=== PATIENT | female | born 1940 ===

== ENCOUNTER 2017-10-03 06:48 | Day surgery (SDC) | payer MEDICARE, MEDICAID ==
[2017-10-03 08:03] VITALS: BMI 29.0
[2017-10-03 08:14] VITALS: RESP 18
[2017-10-03 08:46] LABS: PARTIAL THROMBOPLASTIN TIME 31.1 Seconds (25.6-37.1); PROTHROMBIN TIME 11.4 Seconds (9.8-13.1)
[2017-10-03] MEDS ORDERED: Lidocaine Hydrochloride 1% 10 ML ONE (10:28)
[2017-10-03 10:50] VITALS: TEMP 97.4
--- NOTE | 2017-10-03 11:19 | CP.SDSHP ---
Same Day Surgery H & P - History Proposed Procedure: US Guided Thyroid FNA Pre-Op Diagnosis: thyroid nodules - Allergies Allergies: Allergies No Known Allergies Allergy (Verified 10/03/17 08:02) - Physical Exam Vital Signs: Vital Signs 10/03/17 10/03/17 08:13 10:45 Temperature 98.5 F 97.4 F L Pulse Rate 77 78 Respiratory 18 18 Rate Blood Pressure 139/62 156/66 H O2 Sat by Pulse 96 100 Oximetry - Impression Impression: 77 yo female w/ thyroid nodules; plan US guided FNA x3 - Date & Time Date: 10/03/17 Time: 10:45 Short Stay Discharge - Short Stay Discharge Admitting Diagnosis/Reason for Visit: E04.1 Disposition: HOME/ ROUTINE Referrals: Seymour Mccallum [Primary Care Provider] -
--- NOTE | 2017-10-03 11:20 | PCM.SURG1 ---
Surgeon's Initial Post Op Note - Surgeon's Notes Surgeon: Dillon Gardner MD Building Superintendent: None Type of Anesthesia: Local Pre-Operative Diagnosis: thyroid nodules Operative Findings: posterior right upper pole; anterior right mid pole; posterior right lower pole Post-Operative Diagnosis: same Operation Performed: us guided thyroid fna x3 Specimen/Specimens Removed: posterior right upper pole, anterior right mid pole , posterior right lower pole FNA Estimated Blood Loss: EBL {In ML}: 0 Date of Surgery/Procedure: 10/03/17 Time of Surgery/Procedure: 11:15
[2017-10-03 12:15] VITALS: BP 170/63; PULSE 61; O2SAT 20
--- NOTE | 2017-10-03 13:49 | US ---
PROCEDURE: ULTRASOUND-GUIDED THYROID BIOPSY CLINICAL HISTORY: 77-year-old female with suspicious thyroid nodules is referred to Interventional Radiology for ultrasound-guided thyroid FNA. COMPARISON: Thyroid ultrasound dated 09/26/2017 PROCEDURE: 1. Ultrasound-guided thyroid FNA x3. PRE-PROCEDURE FINDINGS: 1. Posterior right upper pole hypoechoic nodule. 2. Anterior right midpole hypoechoic nodule. 3. Posterior right lower pole echogenic nodule. POST-PROCEDURE FINDINGS: 1. No evidence of post-procedural complication. INTERVENTIONAL RADIOLOGIST: Dillon Gardner M.D. (the attending was present for the entire procedure.) ANESTHESIA: None. MEDICATION: Lidocaine 1% for local subcutaneous analgesia. COMPLICATIONS: None. PROCEDURE DESCRIPTION AND FINDINGS: The risks, benefits, alternatives and possible complications of the procedure were fully discussed; all questions were answered and informed consent was obtained. The patient was brought into the interventional suite and a pre-procedure 'time-out' was performed. The patient was placed on the ultrasound table in the supine position and the neck was passively extended. The anterior neck was prepped and draped in the usual sterile fashion. Maximum sterile barrier precautions were maintained throughout the entire procedure. Preliminary focused ultrasound images of the thyroid demonstrate the previously identified nodules referred for biopsy. Following subcutaneous infiltration of lidocaine 1% for local analgesia, under ultrasound guidance, utilizing separate needles, multiple fine needle aspirations were performed of the posterior right upper pole, anterior right midpole and posterior right lower pole thyroid nodules, with real-time visualization of needle entry. The ultrasound images were permanently recorded and sent to the PACS. Adequate hemostasis was achieved utilizing manual compression. A sterile adhesive dressing was applied over the puncture sites. The patient tolerated the procedure well without immediate post-procedure complications and was discharged home in stable condition. IMPRESSION: Successful ultrasound-guided fine needle aspiration of the posterior right upper pole, anterior right midpole and posterior right lower pole thyroid nodules.
== END 2017-10-03 12:35 | disposition home or self-care (01) ==
LOC: H.OPSURG 06:48
PROVIDERS: ATTEND Internal Medicine Endocrinology, Diabetes & Metabolism
DX: E04.1 Nontoxic single thyroid nodule (principal)

== ENCOUNTER 2018-10-08 09:47 | Day surgery (SDC) | payer MEDICARE, MEDICAID ==
[2018-10-08 10:14] VITALS: BMI 29.2
[2018-10-08] MEDS ORDERED: Lidocaine Hydrochloride 1% 10 ML ONE (11:32)
[2018-10-08 12:33] VITALS: RESP 18
--- NOTE | 2018-10-08 12:35 | CP.SDSHP ---
Same Day Surgery H & P - History Proposed Procedure: US guided FNA of right thyroid nodule Pre-Op Diagnosis: thyroid nodule - Allergies Allergies: Allergies No Known Allergies Allergy (Verified 10/08/18 10:14) - Physical Exam Vital Signs: Vital Signs 10/08/18 10/08/18 10:56 12:32 Temperature 98.2 F 97.4 F L Pulse Rate 64 58 L Respiratory 95 H 18 Rate Blood Pressure 118/57 L 147/67 O2 Sat by Pulse 100 Oximetry Mental Status: Alert & Oriented x3 - Impression Impression: Pt with multiple thyroid nodules. Plan US guided FNA of largest right thyroid nodule Pt. Evaluated Today:Candidate for Anesthesia & Procedure: No Short Stay Discharge - Short Stay Discharge Admitting Diagnosis/Reason for Visit: E04.1 Disposition: HOME/ ROUTINE Referrals: Seymour Mccallum [Primary Care Provider] -
--- NOTE | 2018-10-08 12:36 | PCM.SURG1 ---
Surgeon's Initial Post Op Note - Surgeon's Notes Surgeon: Carlos Jimenez MD Data Coder Operator: NONE Type of Anesthesia: Local Pre-Operative Diagnosis: thyroid nodule Operative Findings: Multiple complex thyroid nodules Post-Operative Diagnosis: thyroid nodule Operation Performed: US guided FNA of largest 2.2 cm right thyroid nodule Specimen/Specimens Removed: 25 g FNA x 5 passes Estimated Blood Loss: EBL {In ML}: 1 Blood Products Given: N/A Drains Used: No Drains Date of Surgery/Procedure: 10/08/18 Time of Surgery/Procedure: 12:35
[2018-10-08 14:08] VITALS: BP 147/64; PULSE 58; TEMP 98.2; O2SAT 98
--- NOTE | 2018-10-10 12:17 | US ---
PROCEDURE: Date of Procedure: 10/08/2018 PROCEDURE: 1. Ultrasound guided FNA of right thyroid nodule, CPT 34162 2. Ultrasound guidance for FNA, 86124 Medications: 3cc 1% Lidocaine HISTORY: Enlarged right thyroid nodule. TECHNIQUE: Following informed consent and procedure time-out, a limited ultrasound patient's neck confirmed the presence of a 1.5 Cm complex right thyroid nodule which is predominantly solid. After the patient's neck was prepped and draped in the usual sterile fashion, the skin was anesthetized with 1% lidocaine. Ultrasound-guided fine needle aspiration was then performed of the dominant right thyroid nodule. A total of 5 passes were made into the nodule with 25 gauge needle under ultrasound guidance. The FNA specimen was sent for routine pathology and genetics . Post biopsy ultrasound showed no hematoma. IMPRESSION: Ultrasound-guided FNA of the dominant right thyroid nodule.
== END 2018-10-08 14:00 | disposition home or self-care (01) ==
LOC: H.OPSURG 09:47
PROVIDERS: ATTEND Internal Medicine Endocrinology, Diabetes & Metabolism
DX: E04.2 Nontoxic multinodular goiter (principal)